=== PATIENT | male | born 1990 | race African-American/Black ===

== ENCOUNTER 2017-02-20 11:56 | Emergency (ER) | payer MEDICAID ==
[~2017-02-20] VITALS: Ht 172.7 cm; Wt 117.5 kg
[2017-02-20 12:06] VITALS: BP 148/101
== END 2017-02-20 14:14 | disposition home or self-care (01) ==
LOC: ER 11:56
DX: S83.8X1A Sprain of other specified parts of right knee, initial encounter (principal); S39.012A Strain of muscle, fascia and tendon of lower back, initial encounter; W18.39XA Other fall on same level, initial encounter; Y93.89 Activity, other specified; Y92.89 Other specified places as the place of occurrence of the external cause; Y99.8 Other external cause status
CPT/HCPCS: 72100; 73562; 81002

== ENCOUNTER 2017-04-20 18:31 | Emergency (ER) | payer MEDICAID ==
[~2017-04-20] VITALS: Ht 172.7 cm; Wt 113.4 kg
[2017-04-20 18:45] VITALS: BP 157/88
== END 2017-04-20 20:57 | disposition home or self-care (01) ==
LOC: ER 18:41
DX: J40 Bronchitis, not specified as acute or chronic (principal); J45.909 Unspecified asthma, uncomplicated
CPT/HCPCS: 71020; 93005

== ENCOUNTER 2024-10-25 08:21 | Emergency (ER) | payer SELFPAY ==
[~2024-10-25] VITALS: Ht 170.2 cm; Wt 93.1 kg
[2024-10-25 09:06] VITALS: BP 140/78; PULSE 98; RESP 17; TEMP 98.1; O2SAT 98
--- NOTE | 2024-10-25 09:58 | DVH ---
CLINICAL INDICATION: r/o fracture TECHNIQUE: XY R FOOT 3 VIEW XRAY Comparison: None FINDINGS/IMPRESSION: : There is no evidence of acute fracture or dislocation. Soft tissues are unremarkable. Hallux valgus
[2024-10-25] MEDS ORDERED: NAPR-746 PO (10:17)
--- NOTE | 2024-10-25 10:17 | ED.PDOC ---
Musculoskeletal HPI Comments This is a pleasant 34-year-old gentleman with no MHx that presents with a chief complaint foot pain located to the right malleolus. Injury occurred three months ago Cause of injury: Exercising, patient at the gym. Pt doing agility training felt a sudden pop and pain has been with persistent since. Pain is aggravated with ambulation and prolonged standing and alleviated at rest Still able to bear weight Denies previous surgeries to the ankle Denies redness or swelling around the ankle Denies fever chills night sweats nausea vomiting Chief Complaint: Lower Extremity Time Seen by MD: 08:37 Primary Care Provider: OOA Reviewed Notes: Nurses Notes, Medications, Allergies Allergies: Coded Allergies: NO KNOWN ALLERGIES (Unverified , 04/20/17) Information Source: Patient Mode of Arrival: Ambulatory Past Medical History PAST MEDICAL HISTORY: Denies Surgical History: Denies all surgeries Family History Family History: Unknown Social History Smoker: Non-Smoker Alcohol: Denies ETOH Use Drugs: Denies Drug Use Lives In: Home All Other Systems: Reviewed and Negative (PER HPI) Physical Exam General Appearance: No Apparent Distress, Normal HEENT: Normal ENT Inspection, Pharynx Normal, TMs Normal Neck: Full Range of Motion, Non-Tender, Normal, Normal Inspection Respiratory: Chest Non-Tender, Lungs Clear, No Accessory Muscle Use, No Respiratory Distress, Normal Breath Sounds Cardiovascular: No Murmur, No Gallop, Regular Rate/Rhythm Breast Exam: Deferred Gastrointestinal: No Organomegaly, Non Tender, No Pulsatile Mass, Normal Bowel Sounds, Soft Genitalia: Deferred Pelvic: Deferred Rectal: Deferred Extremities: No calf tenderness, Normal capillary refill, Normal inspection, Normal range of motion, Non-tender, No pedal edema Musculoskeletal : Location: Right Extremity Location: Foot (No gross abnormality on inspection. No ecchymosis soft tissue swelling. Full passive active range of motion. Neurovascular intact) Apperance: Normal Neurologic: Alert, No Motor Deficits, Normal Affect, Normal Mood, No Sensory Deficits Cerebellar Function: Normal Reflexes: Normal Skin: Dry, Normal Color, Warm Lymphatic: No Adenopathy Was a procedure done? Was a procedure done?: No Differential Diagnosis EXT Differential Diagnosis: Fracture, Sprain, Dislocation X-Ray, Labs, Meds, VS Vital Signs Date Time Temp Pulse Resp B/P (MAP) Pulse Ox O2 Delivery O2 Flow Rate FiO2 10/25/24 09:06 98.1 97 17 140/78 (98) 98 98.1 10/25/24 09:06 98 17 98 Room Air 10/25/24 08:29 97.5 98 16 147/85 (105) 95 97.5 X-Ray, Labs, Meds, VS Comment Findings: No fracture or dislocation My wet read reveals no apparent acute bony abnormality, no FB, minimal to no soft tissue swelling and appropriate alignment. Presentation most consistent with Ankle Sprain. Patient does not currently demonstrate complications of sprain such as compartment syndrome, arterial or nerve injury. Differentials considered but not limited to: sprain, fracture, achilles tendon rupture, Maisonneuve fracture, distal fibula avulsion fracture, bi/tri-malleolar fracture, neurovascular compromise. The joint itself is non-irritable with ROM and there is no overlying redness and warmth to suggest injection. The Achilles and dorsiflexion tendon are non-tender and extension is intact. Disposition: Discharge. Supportive bracing provided. Patient was placed in an air-splint, WBAT. RICE. Strict return precautions and instructions to follow up with primary MD within 24-48 hours for further evaluation. May benefit from additional imaging such as stress views or MRI. Time of 1ST Reevaluation: 10:15 Reevaluation 1ST: Improved Patient Education/Counseling: Diagnosis, Treatment Family Education/Counseling: Diagnosis, Treatment Departure 1 Departure Time of Disposition: 10:16 Impression: Primary Impression: Foot tendinitis Disposition: 01 HOME / SELF CARE / HOMELESS Condition: Stable e-Prescriptions Naproxen (Naproxen) 500 Mg Tab 500 MG PO BIDPC for 10 Days, #20 TAB 0 Refills Prov: RIGOBERTO VENTURA NP 10/25/24 Discharged With: Self Critical Care Note Critical Care Time?: No Stability Stability form required: No Heart Score Heart Score: Heart Score Response (Comments) Value History N/A 0 EKG N/A 0 Age N/A 0 Risk Factors N/A 0 Troponin N/A 0 Total 0 RIGOBERTO VENTURA NP October 25, 2024 10:17
== END 2024-10-25 10:24 | disposition home or self-care (01) ==
LOC: ER 08:21
DX: M77.9 Enthesopathy, unspecified (principal)
CPT/HCPCS: 73630